=== PATIENT | male | born 1955 | race Caucasian/White ===

== ENCOUNTER → 2019-03-06 | Outpatient (CLI) | payer MEDICARE, BC ==
[2012-06-19 10:59] VITALS: BP 115/78
[~2019-03-06] MED LIST: BENICAR40 MG PO; CEPHALEXIN500 M1 PO; FENOFIBRATE160 MG PO; FENOGLIDE40 MG PO; HCTZ 25MG25 MG PO; NORCO 325 MG-51 TAB PO; PRILOSEC 20MG20 MG PO
== END ==
LOC: RAD 09:13
DX: Z13.6 Encounter for screening for cardiovascular disorders (principal); Z87.891 Personal history of nicotine dependence

== ENCOUNTER → 2019-05-26 | Outpatient (CLI) | payer MEDICARE, BC ==
[2012-06-19 10:59] VITALS: BP 115/78
== END ==
LOC: RAD 15:59
DX: J36 Peritonsillar abscess (principal)
CPT/HCPCS: Q9967

== ENCOUNTER → 2020-03-08 | Outpatient (CLI) | payer MEDICARE, BC ==
[2012-06-19 10:59] VITALS: BP 115/78
== END ==
LOC: RAD 06:59
DX: Z13.6 Encounter for screening for cardiovascular disorders (principal); Z87.891 Personal history of nicotine dependence

== ENCOUNTER → 2021-12-04 | Outpatient (CLI) | payer MEDICARE, BC | LOC: LAB 14:34 | DX: C61 Malignant neoplasm of prostate (principal) ==

== ENCOUNTER → 2022-06-12 | Outpatient (CLI) | payer MEDICARE, BC | LOC: VAS 13:22 → RAD 13:22 | DX: R06.00 Dyspnea, unspecified (principal) ==

== ENCOUNTER → 2024-07-03 | Day surgery (SDC) | payer MEDICARE, BC ==
[~2024-07-03] MED LIST changes: +fentaNYL 100 MCG/2 ML VIAL ONE
== END ==
LOC: MSO 08:02
DX: Z12.11 Encounter for screening for malignant neoplasm of colon (principal); E66.9 Obesity, unspecified; Z79.01 Long term (current) use of anticoagulants; Z86.718 Personal history of other venous thrombosis and embolism; Z86.711 Personal history of pulmonary embolism; Z85.46 Personal history of malignant neoplasm of prostate
CPT/HCPCS: 00812; J2704; J3010; J7120